=== PATIENT | male | born 1980 | race African-American/Black ===

== ENCOUNTER 2017-02-13 22:11 | Emergency (ER) | payer SELFPAY ==
[~2017-02-13] VITALS: Ht 185.4 cm; Wt 116.0 kg
[2017-02-13] MEDS ORDERED: ONDANSETRON HCL 4MG/2ML VIAL IV STA (22:43)
[2017-02-13] MEDS ORDERED: SODIUM CHLORIDE 0.9% 1000ML BAG (SEPSIS BOLUS) IV ONE (22:45)
[2017-02-13] MEDS ORDERED: FENTANYL CITRATE/PF 50MCG/ML 2ML VIAL IV ONE (22:45)
[2017-02-13 23:11] LABS: BASOPHILS % 0.4 % (0.0-2.0); EOSINOPHILS % 0.3 % (0.0-5.0); HEMATOCRIT. 44.7 % (42.0-52.0); HEMOGLOBIN. 14.5 g/dL (14.0-18.0); LYMPHOCYTES % 30.2 % (20.0-50.0); MEAN CORPUSCULAR HEMOGLOBIN 27.3 pg (28.0-32.0); MEAN CORPUSCULAR VOLUME 84.6 fL (80.0-94.0); MEAN PLATELET VOLUME 8.2 fl (7.4-10.4); MONOCYTES % 28.4 % (2.0-8.0); NEUTROPHILS % 40.7 % (40.0-76.0); PLATELET 215 x1000/uL (130-400); RED BLOOD CELL COUNT 5.29 mill/uL (4.7-6.1); RED CELL DISTRIBUTION WIDTH 14.2 % (11.6-14.6)
[2017-02-13 23:15] LABS: CHLORIDE 101 mEq/L (98-107)
[2017-02-13 23:16] LABS: INR 1.2; PROTHROMBIN TIME 12.9 sec (9.4-11.6)
[2017-02-13 23:24] LABS: CARBON DIOXIDE 20 mEq/L (21-32); CREATINE KINASE 859 IU/L (39-308)
[2017-02-13] MEDS ORDERED: MIDAZOLAM HCL 2 MG/2 ML VIAL IV ONE (23:45)
[2017-02-14] MEDS ORDERED: IOHEXOL-350 100 ML BOTTLE ONE (00:57)
[2017-02-14 01:54] LABS: *AMPHETAMINES SCREEN URINE PRESUMTIVE POSITIVE (NEGATIVE); *BARBITURATES SCREEN URINE NEGATIVE (NEGATIVE); *BENZODIAZEPINES SCREEN URINE PRESUMTIVE POSITIVE (NEGATIVE); *COCAINE SCREEN URINE NEGATIVE (NEGATIVE); CANNABINOID URINE SCREEN NEGATIVE (NEGATIVE); METHADONE URINE SCREEN NEGATIVE (NEGATIVE); OPIATES URINE SCREEN NEGATIVE (NEGATIVE); PHENCYCLIDINE URINE SCREEN NEGATIVE (NEGATIVE)
[2017-02-14 04:11] VITALS: BP 141/74
== END 2017-02-14 05:50 | disposition home or self-care (01) ==
LOC: ER 22:11
DX: S09.8XXA Other specified injuries of head, initial encounter (principal); S39.91XA Unspecified injury of abdomen, initial encounter; S29.8XXA Other specified injuries of thorax, initial encounter; E87.2 Acidosis; S16.1XXA Strain of muscle, fascia and tendon at neck level, initial encounter; F17.210 Nicotine dependence, cigarettes, uncomplicated; F12.10 Cannabis abuse, uncomplicated; F14.10 Cocaine abuse, uncomplicated; Z87.828 Personal history of other (healed) physical injury and trauma; V43.62XA Car passenger injured in collision with other type car in traffic accident, initial encounter; Y93.89 Activity, other specified; Y92.488 Other paved roadways as the place of occurrence of the external cause
CPT/HCPCS: 36415; 70450; 71010; 71260; 72125; 74177; 80053; 80305; 82550; 83605; 85025; 85610; 93005; 96361; 96374; 96375; 99291; G0482; J2250; J2405; J3010; J7030; Q9967; Z7610